=== PATIENT | male | born 1995 | race Caucasian/White ===

== ENCOUNTER → 2016-06-09 | Emergency (ER) | payer MEDICAID ==
[~2016-06-09] VITALS: Ht 180.3 cm; Wt 73.5 kg
[~2016-06-09] MED LIST: ACETAMINOPHEN-1 EAC1 ORAL; CYCLOBENZAPRINE10 MG ORAL; IBUPROFEN600 MG ORAL
[2016-06-10 00:25] VITALS: BP 121/78
[2016-06-10 00:30] VITALS: BP 121/78
--- NOTE | 2016-06-10 02:51 | Emergency Room Report ---
History of Present Illness General Chief Complaint: Lower Back Pain or Injury Source: Patient Present Illness HPI 21-year-old male presents to ED complaining of back pain. States that tonight he was playing basketball and sustained a slip and fall landing on his back. Denies hitting his head or LOC. Complaining of pain to the lower back. Sharp. 10 out of 10. Worse with bending and twisting. No other aggravating or relieving factors. Denies any other injuries. Denies any other associated symptoms Allergies: Coded Allergies: No Known Allergies (Unverified , 06/09/16) Patient History Past Medical History: none Past Surgical History: none Pertinent Family History: none Social History: Denies: alcohol use, drug use, smoking Immunizations: UTD Reviewed Nursing Documentation: PMH: Agreed, PSxH: Agreed Nursing Documentation-PMH Past Medical History: No Stated History Review of Systems All Other Systems: negative except mentioned in HPI Physical Exam Vital Signs Date Time Temp Pulse Resp B/P Pulse Ox O2 Delivery O2 Flow Rate FiO2 06/09/16 23:05 98.2 81 16 121/74 100 Room Air Sp02 EP Interpretation: reviewed, normal General Appearance: no apparent distress, alert, GCS 15, non-toxic Head: normocephalic Eyes: bilateral eye PERRL, bilateral eye normal inspection ENT: normal ENT inspection Neck: normal inspection Respiratory: chest non-tender, lungs clear, normal breath sounds, speaking full sentences Cardiovascular #1: regular rate, rhythm, no edema Gastrointestinal: normal inspection Rectal: deferred Genitourinary: no CVA tenderness, vertebral tenderness Musculoskeletal: tender - lower back pain Neurologic: alert, oriented x3, responsive, motor strength/tone normal, sensory intact, speech normal Psychiatric: normal inspection Skin: normal inspection Lymphatic: normal inspection Medical Decision Making Diagnostic Impression: Primary Impression: Contusion, back Qualified Codes: S20.222A - Contusion of left back wall of thorax, initial encounter ER Course Hospital Course 21-year-old M presents to ED complaining of back pain s/p fall Differential diagnoses include: Fracture, dislocation, sprain, contusion Clinical course Patient placed on stretcher. After initial history and physical, I ordered Xrays of Lspine. patient declined pain medications Xrays prelim read shows no acute fracture/dislocation. Diagnosis - back contusion Stable and discharged to home with prescription for Motrin, flexeril, Tylenol # 3. apply ice, keep elevated. weight bear as tolerated. Followup with PMD. Return to ED if symptoms recur or worsen Other X-Ray Diagnostic Results Other X-Ray Diagnostic Results : X-Ray Ordered: L spine EP Interpretation: Yes Findings: no fractures, no dislocation, no soft tissue swelling Number of Views: 3 Last Vital Signs Date Time Temp Pulse Resp B/P Pulse Ox O2 Delivery O2 Flow Rate FiO2 06/10/16 00:30 98.2 68 16 121/78 100 Room Air Status: improved Disposition: HOME, SELF-CARE Condition: Stable Scripts Cyclobenzaprine Hcl* (FLEXERIL*) 10 Mg Tablet 10 MG ORAL TID Y for Muscle Spasm, #20 TAB Prov: ELENA SUE M.D. 06/10/16 Acetaminophen With Codeine (T#3) (TYLENOL #3 TAB*) Y Tab 1 TAB ORAL Q8H Y for For Pain, #20 TAB Prov: ELENA SUE M.D. 06/10/16 Ibuprofen* (MOTRIN*) 600 Mg Tablet 600 MG ORAL Q8H Y for For Pain, #30 TAB 0 Refills Prov: ELENA SUE M.D. 06/10/16 Referrals: NOT CHOSEN [facility]/,REFERRING Patient Instructions: Back Pain, Adult ELENA SUE M.D. Jun 10, 2016 02:51
--- NOTE | 2016-06-11 08:06 | Diagnostic Imaging Report ---
Indication: PAIN Technique: 3 views of the lumbar spine Comparison: None Findings:Vertebral body heights are preserved. Disc spaces are preserved. Pedicles are intact. Sacral arches are preserved. Sacroiliac joint spaces are preserved Impression:Negative
== END | disposition home or self-care (01) ==
LOC: EMR 23:19
DX: S30.0XXA Contusion of lower back and pelvis, initial encounter (principal); W01.0XXA Fall on same level from slipping, tripping and stumbling without subsequent striking against object, initial encounter; Y93.67 Activity, basketball; Y92.9 Unspecified place or not applicable; Y99.9 Unspecified external cause status; M54.5 Low back pain
CPT/HCPCS: 72020; 99284

== ENCOUNTER 2016-08-27 16:54 | Emergency (ER) | payer MEDICAID ==
[~2016-08-27] VITALS: Ht 180.3 cm; Wt 74.8 kg
--- NOTE | 2016-08-27 18:50 | Emergency Room Report ---
History of Present Illness General Chief Complaint: Lower Extremity Injury Source: Patient Present Illness HPI 21-year-old male presents emergency department complaining of 7/10 in severity localized left medial knee pain since yesterday after playing basketball and another player hit his knee. Patient denies instability reports pain with flexion of the knee. Denies bruising, erythema or increase in pressure palpation. Patient denies previous injury. Patient denies hitting his head or loss of consciousness . Pt also reports recent unprotected intercourse with new partner and wants to be tested for G&C, denies d/c , lesions, dysuria or tender swollen lymph nodes. Denies numbness tingling or loss of sensation or gross motor movements of the extremities, incontinence of bowel or bladder. Denies CP, Palpitations, LOC, AMS, dizziness, Changes in Vision, Sensation, paresthesias, or a sudden severe headache. Allergies: Coded Allergies: No Known Allergies (Unverified , 06/09/16) Patient History Past Medical History: see triage record Past Surgical History: none Pertinent Family History: none Immunizations: UTD Reviewed Nursing Documentation: PMH: Agreed, PSxH: Agreed Nursing Documentation-PMH Past Medical History: No Stated History Review of Systems All Other Systems: negative except mentioned in HPI Physical Exam Vital Signs Date Time Temp Pulse Resp B/P Pulse Ox O2 Delivery O2 Flow Rate FiO2 08/27/16 17:05 98.4 62 18 145/72 100 Room Air Sp02 EP Interpretation: reviewed, normal General Appearance: no apparent distress, alert, GCS 15, non-toxic Head: normocephalic, atraumatic Eyes: bilateral eye PERRL, bilateral eye normal inspection ENT: hearing grossly normal, normal pharynx, no angioedema, normal voice Neck: full range of motion, supple/symm/no masses Respiratory: lungs clear, normal breath sounds, speaking full sentences Cardiovascular #1: regular rate, rhythm, no edema Genitourinary: normal inspection Musculoskeletal: back normal, gait/station normal, normal range of motion, tender - TTP to the medial aspect of the left knee, no obvious deformity noted, no increased laxity, erythema, or swelling noted. FROM with pain. Neurologic: alert, oriented x3, responsive, motor strength/tone normal, sensory intact, speech normal Psychiatric: judgement/insight normal, memory normal, mood/affect normal Skin: normal color, no rash, warm/dry, well hydrated Medical Decision Making PA Attestation Dr. Hale is my supervising Physician whom patient management has been discussed with. Diagnostic Impression: Primary Impression: Knee pain Qualified Codes: M25.562 - Pain in left knee Additional Impressions: Knee MCL sprain Qualified Codes: S83.412A - Sprain of medial collateral ligament of left knee , initial encounter Exposure to venereal disease ER Course 21-year-old male presents emergency department complaining of 7/10 in severity localized left medial knee pain since yesterday after playing basketball and another player hit his knee. Patient denies instability reports pain with flexion of the knee. Denies bruising, erythema or increase in pressure palpation. Patient denies previous injury. Patient denies hitting his head or loss of consciousness. Pt also reports recent unprotected intercourse with new partner and wants to be tested for G&C, denies d/c , lesions, dysuria or tender swollen lymph nodes. Ddx considered but are not limited to Fracture, dislocation, contusion, Sprain/ Strain/Spasm Vital signs: are WNL, pt. is afebrile H&PE are most consistent with soft tissue knee injury will r/o fractures with imaging, most likely will need MRI, no significant instability noted on PE. ORDERS: - Urine G & C: Pending - X-ray Left knee 3 views - negative for fx, Dislocation, or significant soft tissue injury- questionable calcified ligament vs bone fragment per preliminary read in ED by Dr. Hale electronically signed 08/27 @ 1811 ED INTERVENTIONS: - Hari wrap applied to the left knee by technical operations manager. Pt. remains neurovascularly intact. DISCHARGE: At this time pt. is stable for d/c to home. Will provide printed patient care instructions, and any necessary prescriptions. Care plan and follow up instructions have been discussed with the patient prior to discharge. Last Vital Signs Date Time Temp Pulse Resp B/P Pulse Ox O2 Delivery O2 Flow Rate FiO2 08/27/16 17:05 98.4 62 18 145/72 100 Room Air Disposition: HOME, SELF-CARE Condition: Stable Scripts Ibuprofen* (MOTRIN*) 600 Mg Tablet 600 MG ORAL THREE TIMES A DAY for 10 Days, #30 TAB 0 Refills Prov: Yoana Reyes 08/27/16 Referrals: [facility],REFERRING (PCP) Patient Instructions: Knee Sprain Additional Instructions: Take medications as directed. Follow up with PCP in 3-5 days, if symptoms continue despite conservative treatment, MRI is recommended Return sooner to ED if new symptoms occur, or current symptoms become worse. - Please note that this Emergency Department Report was dictated using [employer] client technology software, occasionally this can lead to erroneous entry secondary to interpretation by the dictation equipment. Yoana Reyes. Aug 27, 2016 18:50
[2016-08-27] MEDS ORDERED: IBUPROFEN600 MG ORAL (18:51)
[2016-08-27 18:55] VITALS: BP 145/72
--- NOTE | 2016-08-28 12:58 | Diagnostic Imaging Report ---
Indications: PAIN Technique: Three views of the knee Comparison: None Findings: No acute fractures. No dislocations. Joint spaces are preserved. No radiopaque foreign body. Normal mineralization. Unusual elongated well-corticated ossific density projects posterior to the intercondylar notch, measures 2 cm in length. Impression: No acute process Unusual ossific density posterior to the intercondylar notch. This may represent an unusual appearing ossified fabella, an intra-articular loose body, or an old avulsion injury. This agrees with the preliminary interpretation provided overnight by Dr. Hnanon
== END 2016-08-27 19:07 | disposition home or self-care (01) ==
LOC: EMR 18:44
DX: S83.412A Sprain of medial collateral ligament of left knee, initial encounter (principal); W51.XXXA Accidental striking against or bumped into by another person, initial encounter; Y93.67 Activity, basketball; Y92.89 Other specified places as the place of occurrence of the external cause; Z20.2 Contact with and (suspected) exposure to infections with a predominantly sexual mode of transmission
CPT/HCPCS: 29530; 87491; 87590; 99283

== ENCOUNTER 2017-06-01 10:47 | Emergency (ER) | payer MEDICAID ==
[~2017-06-01] VITALS: Ht 177.8 cm; Wt 74.8 kg
[2017-06-01] MEDS ORDERED: NKM (10:58)
[2017-06-01 11:02] VITALS: BP 122/84
[2017-06-01] MEDS ORDERED: Lidocaine 1% MPF 10mg/ml 5ml INJ ONE (11:15)
[2017-06-01] MEDS ORDERED: Fluorescein Strips RIGHT EYE ONE (11:15)
[2017-06-01] MEDS ORDERED: Tetracaine 0.5% Opth 4ml Soln RIGHT EYE ONE (11:15)
[2017-06-01] MEDS ORDERED: DOXYCYCLINE MO100 MG ORAL (11:31)
[2017-06-01] MEDS ORDERED: CILOXAN5 ML OP (11:31)
--- NOTE | 2017-06-01 11:35 | Emergency Room Report ---
History of Present Illness General Chief Complaint: Eye Problems Source: Patient Present Illness HPI Patient is a 22-year-old male who presented after increased right eye discomfort and irritation. The patient was noted to have additionally some increased urethral discharge. Patient had recent treatment for unprotected sex exposure. She denies any sore throat or cough. He is a contact lens user. Patient put a having some slight discomfort to his left eye. He noted increased swelling to the right lid as well as right eye discharge. Allergies: Coded Allergies: No Known Allergies (Unverified , 06/09/16) Patient History Past Medical History: see triage record Reviewed Nursing Documentation: PMH: Agreed; PSxH: Agreed Nursing Documentation-PMH Past Medical History: No Stated History Review of Systems All Other Systems: negative except mentioned in HPI Physical Exam Vital Signs Date Time Temp Pulse Resp B/P (MAP) Pulse Ox O2 Delivery O2 Flow Rate FiO2 06/01/17 10:53 97.7 68 16 122/84 98 Room Air 97.7 General Appearance: well appearing, no apparent distress, alert, GCS 15 Head: normocephalic, atraumatic Eyes: bilateral eye other - right eye conjunctival erythema, right lid swelling , discharge, no fluorescein dye uptake ENT: hearing grossly normal, normal voice Neck: full range of motion, supple Respiratory: no respiratory distress, speaking full sentences Musculoskeletal: no calf tenderness Neurologic: normal gait Psychiatric: mood/affect normal Skin: no rash Medical Decision Making Diagnostic Impression: Primary Impression: Hordeolum externum (stye) Additional Impression: Urethritis ER Course Patient presented for eye pain. Differential diagnosis included but wasn't limited to Jody syndrome, glaucoma, iritis, corneal abrasion, bacterial conjunctivitis, viral conjunctivitis. Patient has a benign exam and does not appear to require any further imaging or laboratory testing at this time. The patient was given an injection for presumed STI. The patient is advised outpatient STD testing. Patient was given prescription for Ciloxan drops. Patient is advised to have recheck with screw eye assembler in one to 2 days. The patient was to return for any changes in his vision increased pain or other concerns Last Vital Signs Date Time Temp Pulse Resp B/P (MAP) Pulse Ox O2 Delivery O2 Flow Rate FiO2 06/01/17 11:02 97.7 79 16 122/84 97 Room Air 97.7 Status: improved Disposition: HOME, SELF-CARE Condition: Stable Scripts Ciprofloxacin HCl (Ciloxan) 5 Ml Drops 5 ML OP EVERY 3 HOURS for 5 Days, #5 ML Prov: Tam Bailey 06/01/17 Doxycycline Monohydrate* (DOXYCYCLINE MONOHYDRATE*) 100 Mg Capsule 100 MG ORAL Q12H, #14 CAP 0 Refills Prov: Tam Bailey 06/01/17 Referrals: [facility],REFERRING (PCP) Patient Instructions: Stye, Urethritis, Adult Tam Bailey Jun 01, 2017 11:35
[2017-06-01 11:55] VITALS: BP 122/84
== END 2017-06-01 11:55 | disposition home or self-care (01) ==
LOC: EMR 11:11
DX: H00.013 Hordeolum externum right eye, unspecified eyelid (principal); N34.2 Other urethritis
CPT/HCPCS: 96372; 99284; J0696

== ENCOUNTER 2017-08-06 19:03 | Emergency (ER) | payer MEDICAID ==
[~2017-08-06] VITALS: Ht 177.8 cm; Wt 74.8 kg
[~2017-08-06 19:03] MED LIST changes: +CILOXAN5 ML OP; +DOXYCYCLINE MO100 MG ORAL; +NKM
[2017-08-06] MEDS ORDERED: HYDROcodone/Acetamin 7.5/325 tab ORAL ONE (19:45)
--- NOTE | 2017-08-06 20:10 | Emergency Room Report ---
History of Present Illness General Chief Complaint: Lower Extremity Injury Source: Patient Present Illness HPI 22-year-old male presents emergency department complaining of 9 out of 10 in severity pain, swelling, tenderness to the right ankle in addition to anterior right knee status post mechanical trip and fall while playing basketball. Patient reports he heard and felt a snap and thinks he may have broken his ankle. Patient states pain is exacerbated upon weight-bearing. Denies previous injury to this extremity. Denies neck or back pain. Denies numbness tingling or loss of sensation or gross motor movements of the extremities, incontinence of bowel or bladder. Denies CP, Palpitations, LOC, AMS, dizziness, Changes in Vision, paresthesias, or a sudden severe headache. Allergies: Coded Allergies: No Known Allergies (Unverified , 06/09/16) Patient History Past Medical History: see triage record Past Surgical History: none Pertinent Family History: none Reviewed Nursing Documentation: PMH: Agreed; PSxH: Agreed Nursing Documentation-PMH Past Medical History: No Stated History Review of Systems All Other Systems: negative except mentioned in HPI Physical Exam Vital Signs Date Time Temp Pulse Resp B/P (MAP) Pulse Ox O2 Delivery O2 Flow Rate FiO2 08/06/17 19:14 98.5 71 18 121/60 98 98.4 Sp02 EP Interpretation: reviewed, normal General Appearance: no apparent distress, alert, GCS 15, non-toxic Head: normocephalic, atraumatic ENT: hearing grossly normal, normal voice Neck: full range of motion Respiratory: lungs clear, normal breath sounds, speaking full sentences Cardiovascular #1: regular rate, rhythm, normal capillary refill Musculoskeletal: back normal, normal range of motion, swelling - right ankle, other - not ambulatory, tender - Right medial and lateral ankle, swelling noted , ttp to the anterior knee, no laxity noted, mild swelling, no bruising, FROM. Neurologic: alert, oriented x3, responsive, motor strength/tone normal, sensory intact, speech normal, grossly normal Psychiatric: judgement/insight normal Skin: normal color, no rash, warm/dry, well hydrated Medical Decision Making PA Attestation Dr. andrews is my supervising Physician whom patient management has been discussed with. Diagnostic Impression: Primary Impression: Fracture of distal fibula Qualified Codes: S82.831A - Other fracture of upper and lower end of right fibula, initial encounter for closed fracture ER Course 22-year-old male presents emergency department complaining of 9 out of 10 in severity pain, swelling, tenderness to the right ankle in addition to anterior right knee status post mechanical trip and fall while playing basketball. Patient reports he heard and felt a snap and thinks he may have broken his ankle. Patient states pain is exacerbated upon weight-bearing. Denies previous injury to this extremity. Denies neck or back pain. Denies numbness tingling or loss of sensation or gross motor movements of the extremities, incontinence of bowel or bladder. Denies CP, Palpitations, LOC, AMS, dizziness, Changes in Vision, paresthesias, or a sudden severe headache. Ddx considered but are not limited to Fracture, dislocation, contusion, Sprain/ Strain/Spasm, Ligamental Injury Vital signs: are WNL, pt. is afebrile H&PE are most consistent with musculoskeletal injury will perform imaging to r/ o fractures/dislocations. ORDERS: - X-ray's of Right ankle, and knee. ED INTERVENTIONS: - [place] PO Short leg posterior with stirrup Splint applied to the RIGHT LE by tech ed/woodshop teacheraliza Marroquin. Pt. remains neurovascularly intact. -Patient is provided with crutches and instructed on their use Patient is provided with a CD copy of his imaging. I discussed with this patient with. Follow-up she was also given referral information to [facility] [place] in addition to free primary care clinics. DISCHARGE: At this time pt. is stable for d/c to home. Will provide printed patient care instructions, and any necessary prescriptions. Care plan and follow up instructions have been discussed with the patient prior to discharge. Other X-Ray Diagnostic Results Other X-Ray Diagnostic Results #1: X-Ray ordered: Right Ankle # of Views/Limited Vs Complete: 3 View Indication: Pain EP Interpretation: Yes PA Xray: Interpretation reviewed, by supervising MD, and agrees with findings. Interpretation: no dislocation, other - Soft tissue swelling noted. Distal fibula fracture. Impression: Other - abnormal Electronically Signed by: Yoana Reyes PA-C Other X-Ray Diagnostic Results #2: X-Ray ordered: Right Knee # of Views/Limited Vs Complete: 3 View Indication: Pain EP Interpretation: Yes PA Xray: Interpretation reviewed, by supervising MD, and agrees with findings. Interpretation: no dislocation, no soft tissue swelling, no fractures Impression: No acute disease Electronically Signed by: Yoana Reyes PA-C Last Vital Signs Date Time Temp Pulse Resp B/P (MAP) Pulse Ox O2 Delivery O2 Flow Rate FiO2 08/06/17 19:14 98.5 71 18 121/60 98 98.4 Disposition: HOME, SELF-CARE Condition: Stable Scripts Ibuprofen* (MOTRIN*) 600 Mg Tablet 600 MG ORAL THREE TIMES A DAY, #30 TAB 0 Refills Prov: Yoana Reyes 08/06/17 Hydrocodone Bit/Acetaminophen 5-325* (NORCO 5-325*) 1 Each Tablet 1 TAB ORAL Q6H PRN for For Pain, #15 TAB 0 Refills Prov: Yoana Reyes 08/06/17 Referrals: NOT CHOSEN [facility],REFERRING (PCP) Patient Instructions: Fibular Ankle Fracture Treated With or Without Immobilization, Adult Additional Instructions: Take medications as directed. Referral to [facility] [place] Follow up with a Primary Care Provider in 3-5 days, even if your symptoms have resolved. --Please review list of primary care clinics, if you do not already have a primary care provider Return sooner to ED if new symptoms occur, or current symptoms become worse. Do not drink alcohol, drive, or operate heavy machinery while taking [place] as this may cause drowsiness. - Please note that this Emergency Department Report was dictated using [employer] brand manager technology software, occasionally this can lead to erroneous entry secondary to interpretation by the dictation equipment. Yoana Reyes August 06, 2017 20:10
[2017-08-06] MEDS ORDERED: NORCO 5-325 TA1 EACH ORAL (20:13)
[2017-08-06] MEDS ORDERED: IBUPROFEN600 MG ORAL (20:13)
[2017-08-06 20:55] VITALS: BP 130/72
--- NOTE | 2017-08-07 10:46 | Diagnostic Imaging Report ---
Indication: Pain Knee pain/trauma 3 views of the right knee were obtained. Findings: No acute fracture, malalignment, or joint effusion are identified. Joint space is relatively well-maintained. Impression: Negative for acute findings.
--- NOTE | 2017-08-07 10:47 | Diagnostic Imaging Report ---
Indication: Pain right ankle ankle pain/trauma Comparison: None Findings: 3 views of the right ankle obtained. There is a fracture of the lateral malleolus nondisplaced with overlying soft tissue swelling. Alignment is normal. IMPRESSION: Acute lateral malleolus fracture
== END 2017-08-06 20:55 | disposition home or self-care (01) ==
LOC: EMR 19:41
DX: S82.831A Other fracture of upper and lower end of right fibula, initial encounter for closed fracture (principal); W01.0XXA Fall on same level from slipping, tripping and stumbling without subsequent striking against object, initial encounter; Y93.67 Activity, basketball; Y92.9 Unspecified place or not applicable
CPT/HCPCS: 99284

== ENCOUNTER 2017-08-23 15:40 | Emergency (ER) | payer MEDICAID ==
[~2017-08-23] VITALS: Ht 177.8 cm; Wt 74.8 kg
[~2017-08-23 15:40] MED LIST changes: +NORCO 5-325 TA1 EACH ORAL
--- NOTE | 2017-08-23 18:48 | Diagnostic Imaging Report ---
EXAM: XR Right Foot Complete, 3 or More Views CLINICAL HISTORY: Trauma, fracture TECHNIQUE: Frontal, lateral and oblique views of the right foot. COMPARISON: No relevant prior studies available. FINDINGS: Bones/joints: No acute fracture or malalignment. Healing fracture of the distal fibula is better seen on dedicated ankle radiographs. Soft tissues: Unremarkable. No radiopaque foreign body. IMPRESSION: No acute fracture or malalignment.
--- NOTE | 2017-08-23 18:50 | Diagnostic Imaging Report ---
EXAM: XR Right Ankle Complete, 3 or More Views CLINICAL HISTORY: Fracture TECHNIQUE: Frontal, lateral and oblique views of the right ankle. COMPARISON: 08/06/2017 FINDINGS: Bones/joints: No acute fracture. Soft tissues: Stable alignment of a burst fracture in the distal right fibular metaphysis. The fracture line is less visible which is suggestive of interval healing. Improved lateral soft tissue edema. IMPRESSION: No acute osseous abnormality. Healing lateral malleolus fracture.
--- NOTE | 2017-08-23 19:06 | Emergency Room Report ---
History of Present Illness General Chief Complaint: Lower Extremity Injury Source: Patient Present Illness HPI 22 y.o. M with hx of right distal fibula fx 2 wks ago, here c/o pain under his splint for the past 2 days. c/o intermittnet numbness in right food, denies tingling. pt never f/u with ortho, did not take the splint off, and did not take any pain meds. he also mentions he has intermittnet 3/10 right leg pain wo radiation. he has been going to the gym and applying pressure to his right foot. denies new injury, sob, palpitation, cp. Allergies: Coded Allergies: No Known Allergies (Unverified , 06/09/16) Patient History Past Medical History: see triage record Past Surgical History: none Pertinent Family History: none Immunizations: UTD Reviewed Nursing Documentation: PMH: Agreed; PSxH: Agreed Nursing Documentation-PMH Past Medical History: No Stated History Review of Systems All Other Systems: negative except mentioned in HPI Physical Exam Vital Signs Date Time Temp Pulse Resp B/P (MAP) Pulse Ox O2 Delivery O2 Flow Rate FiO2 08/23/17 15:54 96.0 79 20 109/70 96 Room Air 96.1 Sp02 EP Interpretation: reviewed, normal General Appearance: normal inspection, well appearing, no apparent distress, alert, GCS 15 Head: normocephalic, atraumatic Eyes: bilateral eye normal inspection, bilateral eye PERRL ENT: normal ENT inspection Neck: normal inspection, full range of motion, supple Respiratory: normal inspection, chest non-tender, lungs clear, normal breath sounds, no rhonchi, no respiratory distress, no retraction, no accessory muscle use Cardiovascular #1: normal inspection, normal peripheral pulses, regular rate, rhythm, no edema, no gallop, no JVD, no murmur, no rub Cardiovascular #2: 2+ dorsalis pedis (R), 2+ dorsalis pedis (L) Gastrointestinal: normal inspection, normal bowel sounds, non tender, soft Rectal: deferred Genitourinary: deferred Musculoskeletal: back normal, no calf tenderness, decreased range of motion, swelling - right medial malleoulous, other - mild brusiing over right lateral malleoulous Neurologic: normal inspection, alert, oriented x3, responsive, traffic signal repairer III-XII nml as tested Psychiatric: normal inspection, judgement/insight normal, memory normal Skin: normal inspection, normal color, no rash, warm/dry, palpation normal Lymphatic: normal inspection, no adenopathy Procedures Splinting Splinting : Consent: Verbal Splint: sugar-tong Pre-Proc Neuro Vasc Exam: normal Post-Proc Neuro Vasc Exam: normal Patient Tolerated: Well Complications: None Medical Decision Making PA Attestation all orders, dx, tx plans reviewed and discussed with my supervising physician Dr. Bailey Reaction to Intervention: Improved Diagnostic Impression: Primary Impression: Closed fracture of fibula with routine healing Additional Impression: Ankle pain ER Course 22 y.o. M with hx of right distal fibula fx 2 wks ago, here c/o pain under his splint for the past 2 days. c/o intermittnet numbness in right food, denies tingling. pt never f/u with ortho, did not take the splint off, and did not take any pain meds. he also mentions he has intermittnet 3/10 right leg pain wo radiation. he has been going to the gym and applying pressure to his right foot. denies new injury, sob, palpitation, cp. Ddx considered but are not limited to fx right fibula, ankle sprain, compartment syndrome Vital signs: are WNL, pt. is afebrile H&PE are most consistent with healing fx of right distal fibula ORDERS:splint taken off in ED, right ankle and right foot 2V XR ED INTERVENTIONS: sugar tong short leg splint applied to right leg Other X-Ray Diagnostic Results Other X-Ray Diagnostic Results : X-Ray ordered: right ankle and right foot # of Views/Limited Vs Complete: 2 View Indication: Pain EP Interpretation: Yes PA Xray: Interpretation reviewed, by supervising MD, and agrees with findings. Interpretation: no dislocation, no soft tissue swelling Impression: Other - healing right distal fibula fx Electronically Signed by: Rylie Osuna PA-C Last Vital Signs Date Time Temp Pulse Resp B/P (MAP) Pulse Ox O2 Delivery O2 Flow Rate FiO2 08/23/17 15:54 96.0 79 20 109/70 96 Room Air 96.1 Status: improved Disposition: HOME, SELF-CARE Condition: Stable Referrals: NOT CHOSEN IPA/,REFERRING (PCP) Patient Instructions: Ankle Fracture, Ankle Sprain Additional Instructions: f/u ortho, wear ankle boot, go to [facility] if no ortho referral. avoid extraneous physical activity, avoid putting pressure on the healed fracture. take NSAIDs as needed for pain Rylie Astorga Aug 23, 2017 19:06
[2017-08-23 19:30] VITALS: BP 109/70
== END 2017-08-23 19:30 | disposition home or self-care (01) ==
LOC: EMR 16:30
DX: S82.401D Unspecified fracture of shaft of right fibula, subsequent encounter for closed fracture with routine healing (principal); S82.61XD Displaced fracture of lateral malleolus of right fibula, subsequent encounter for closed fracture with routine healing; X58.XXXD Exposure to other specified factors, subsequent encounter
CPT/HCPCS: 29515; 99284